=== PATIENT | female | born 1945 | race Caucasian/White ===

== ENCOUNTER → 2019-08-18 15:10 | Outpatient (CLI) | payer MEDICARE ==
[2019-08-18 15:45] LABS: ANION GAP 14.9 mmol/L (8-16); CALCIUM 9.8 mg/dL (8.5-10.1); CARBON DIOXIDE 24.2 mmol/L (21.0-32.0); CREATININE - SERUM 1.1 mg/dL (0.6-1.3); POTASSIUM - SERUM 4.1 mmol/L (3.5-5.1)
== END | disposition home or self-care (01) ==
LOC: D.LAB 15:10
DX: I10 Essential (primary) hypertension (principal); R01.1 Cardiac murmur, unspecified; I95.1 Orthostatic hypotension